=== PATIENT | male | born 1995 | race Caucasian/White ===

== ENCOUNTER 2018-06-23 21:46 | Emergency (ER) | payer SELFPAY ==
[~2018-06-23] VITALS: Ht 170.2 cm; Wt 63.5 kg
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
--- NOTE | 2018-06-23 22:33 | NUR ---
LT THUMB LAC, CLEANSED WITH NS BY SHANTHI ISABEL. APPLIED DRESSING, PT MUNA WELL. DRESSING INTACT, NO ACTIVE BLEEDING NOTED UPON LEAVING ED.
[2018-06-23 22:35] VITALS: BP 128/74
== END 2018-06-23 22:36 | disposition home or self-care (01) ==
LOC: ER 21:47
DX: S61.012A Laceration without foreign body of left thumb without damage to nail, initial encounter (principal); W26.0XXA Contact with knife, initial encounter; Y93.G3 Activity, cooking and baking; Y92.89 Other specified places as the place of occurrence of the external cause; Y99.8 Other external cause status
CPT/HCPCS: A4606; A6403; Z7610